=== PATIENT | female | born 1955 | race African-American/Black ===

== ENCOUNTER 2016-03-07 06:13 | Emergency (ER) | payer SELFPAY ==
[~2016-03-07] VITALS: Ht 175.3 cm; Wt 105.0 kg
[~2016-03-07 06:13] MED LIST: CIPR500T4 PO
[2016-03-07 06:16] VITALS: BP 172/84; PULSE 64; RESP 16; TEMP 98.4; O2SAT 97
[2016-03-07] MEDS ORDERED: CEPH-460 PO (07:33)
--- NOTE | 2016-03-07 07:34 | PD ---
HPI Chief Complaint: Complaint Time Seen by Provider: 07:06 Travel History International Travel<30 days: No Contact w/Intl Traveler<30days: No Traveled to known affect area: No History of Present Illness HPI 60-year-old female here with complaint of urinary symptoms. Patient has had 3 days of small volume frequent urination. Little dysuria at the end stream. No suprapubic pain, flank pain, hematuria. No fevers or chills documented. PFSH Past Medical History Hypertension: Yes Past Surgical History Surgical History: No Previous Surgery Social History Alcohol Use: No Tobacco Use: No Substance Use: No Allergies-Medications (Allergen,Severity, Reaction): Coded Allergies: No Known Allergies (Verified , 03/07/16) Reported Meds & Prescriptions Reported Meds & Active Scripts Active No Active Prescriptions or Reported Medications Review of Systems Except as stated in HPI: all other systems reviewed are Neg Physical Exam Narrative GENERAL: Well-appearing female in no acute distress SKIN: Warm and dry. HEAD: Normocephalic. EYES: No scleral icterus. No injection or drainage. ENT: Mucous membranes pink and moist. NECK: Supple CARDIOVASCULAR: Regular rate and rhythm. RESPIRATORY: No accessory muscle use. GASTROINTESTINAL: Abdomen soft, non-tender, nondistended. No CVA tenderness MUSCULOSKELETAL: Normal gait NEUROLOGICAL: Awake and alert. Normal speech. PSYCHIATRIC: Appropriate mood and affect; insight and judgment normal. Data Data Last Documented VS Vital Signs Date Time Temp Pulse Resp B/P Pulse Ox O2 Delivery O2 Flow Rate FiO2 03/07/16 06:36 64 16 03/07/16 06:16 98.4 172/84 97 Room Air Orders Urinalysis - C+S If Indicated (03/07/16 06:25) Urine Culture (03/07/16 07:32) [facility] Medical Decision Making Medical Screen Exam Complete: Yes Emergency Medical Condition: Yes Medical Record Reviewed: Yes Differential Diagnosis 60-year-old female with 3 days of small volume frequent urination and end stream dysuria. Symptoms are classic for cystitis. Patient will be discharged home with antibiotics empirically awaiting urine culture. Narrative Course Urine culture sent, discharged with Keflex. Diagnosis Primary Impression: Cystitis Referrals: Lisbet Huynh MD call for appointment [facility] call for appointment Primary Care Physician call for appointment Additional Instructions: Finish antibiotics as prescribed. Follow-up with primary care, or Nish, and patient assistance. Med/Other Pt SpecificInfo: Prescription(s) given Scripts Cephalexin (Keflex)500 Mg [id number] Mg PO Q6H 7 Days Ref 0 Prov:Lisa Morales MD 03/07/16 Disposition: 01 DISCHARGE HOME Condition: Stable Lisa Morales MD Mar 07, 2016 07:34
== END 2016-03-07 08:05 | disposition home or self-care (01) ==
LOC: NEPC 06:13
DX: N30.90 Cystitis, unspecified without hematuria (principal); I10 Essential (primary) hypertension; R82.99 Other abnormal findings in urine
CPT/HCPCS: 87086; 99283

== ENCOUNTER 2016-11-24 16:12 | Emergency (ER) | payer SELFPAY ==
[~2016-11-24] VITALS: Ht 165.1 cm; Wt 100.0 kg
[~2016-11-24 16:12] MED LIST changes: +CEPH-460 PO; -CIPR500T4 PO
[2016-11-24 16:14] VITALS: BP 177/95; PULSE 86; RESP 19; TEMP 99.4; O2SAT 96
--- NOTE | 2016-11-24 16:31 | PD ---
Physical Exam Time Seen by Provider: 16:30 Narrative 61 y/o female here with dental pain and increased urinary frequency intermittently for 2-3 weeks. No dental pain currently. She also wanted her blood pressure checked. Vital signs reviewed. Seen at triage desk. Awaiting bed placement. Data Data Last Documented VS Vital Signs Date Time Temp Pulse Resp B/P (MAP) Pulse Ox O2 Delivery O2 Flow Rate FiO2 11/24/16 16:14 99.4 86 19 177/95 (122) 96 MDM Medical Record Reviewed: Yes Supervised Visit with TRUNG: Tony Kumar Nov 24, 2016 16:31
--- NOTE | 2016-11-24 18:38 | PD ---
HPI Chief Complaint: Complaint Time Seen by Provider: 17:52 Travel History International Travel<30 days: No Contact w/Intl Traveler<30days: No Traveled to known affect area: No History of Present Illness HPI 61-year-old female here for evaluation of possible urinary infection, dental pain, and difficulty sleeping at night. Symptoms have been going on for the last few weeks. She denies fevers or chills. She is also concerned about possibly having elevated blood pressure. She denies headache. No chest pain or dyspnea. Currently she does not have any dental pain. No paresthesias or motor deficits. PFSH Past Medical History Medical History: Denies Significant Hx Diminished Hearing: No Hypertension: Yes Tetanus Vaccination: > 5 Years Influenza Vaccination: No : 3 Para: 3 Past Surgical History Surgical History: No Previous Surgery Social History Alcohol Use: No Tobacco Use: No Substance Use: No Allergies-Medications (Allergen,Severity, Reaction): Coded Allergies: No Known Allergies (Verified , 11/24/16) Reported Meds & Prescriptions Reported Meds & Active Scripts Active No Active Prescriptions or Reported Medications Review of Systems Except as stated in HPI: all other systems reviewed are Neg Physical Exam Narrative GENERAL: Well-developed, well-nourished, sitting comfortably on chair, no acute distress. SKIN: Focused skin assessment warm/dry. HEAD: Atraumatic. Normocephalic. EYES: Pupils equal and round. No scleral icterus. No injection or drainage. ENT: Mucous membranes pink and moist. Patient only has 2 teeth which are upper and left sided. No fluctuance. No drooling or stridor. No trismus. NECK: Trachea midline. No JVD. CARDIOVASCULAR: Regular rate and rhythm. RESPIRATORY: No accessory muscle use. Clear to auscultation. Breath sounds equal bilaterally. GASTROINTESTINAL: Abdomen soft, non-tender, nondistended. MUSCULOSKELETAL: No obvious deformities. No clubbing. No cyanosis. No edema. NEUROLOGICAL: Awake and alert. No obvious cranial nerve deficits. Motor grossly within normal limits. Normal speech. PSYCHIATRIC: Appropriate mood and affect; insight and judgment normal. Data Data Last Documented VS Vital Signs Date Time Temp Pulse Resp B/P (MAP) Pulse Ox O2 Delivery O2 Flow Rate FiO2 11/24/16 18:26 83 16 11/24/16 16:14 99.4 177/95 (122) 96 Orders Orders Urinalysis - C+S If Indicated (11/24/16 18:35) Urine Culture (11/24/16 18:40) Ciprofloxacin (Cipro) (11/24/16 19:15) Labs Laboratory Tests Test 11/24/16 18:40 Urine Color YELLOW Urine Turbidity HAZY Urine pH 5.5 Urine Specific [place] 1.022 Urine Protein TRACE mg/dL Urine Glucose (UA) NEG mg/dL Urine Ketones NEG mg/dL Urine Occult Blood MOD Urine Nitrite NEG Urine Bilirubin NEG Urine Urobilinogen LESS THAN 2.0 MG/DL Urine Leukocyte Esterase LARGE Urine RBC 27 /hpf Urine WBC 29 /hpf Urine Squamous Epithelial Cells 4 /hpf Urine Bacteria FEW /hpf Urine Hyaline Casts 4 /lpf Urine Mucus MANY /lpf Microscopic Urinalysis Comment CULTURE INDICATED MDM Medical Decision Making Medical Screen Exam Complete: Yes Emergency Medical Condition: Yes Differential Diagnosis UTI, cystitis, pyelonephritis, dental infection, dental cavity, hypertension, hypertensive crisis unlikely Narrative Course Initial vital signs show heart rate 86, blood pressure 177/95, pulse ox 96% on room air, oral temp of 99.4F. UA shows hazy urine, moderate occult blood, large the site esterase, 27 rbc's, 29 wbc's, few bacteria, many mucus. Patient made aware of all findings. She will be started on Cipro. She is not displaying any signs or symptoms of hypertensive crisis. Her abdominal exam is benign. She is stable for discharge home with outpatient follow-up. I will give her the information to the [facility] with whom to follow-up with this week. She was informed on when to return to the emergency department. She verbalizes understanding and agreement with plan. Diagnosis Primary Impression: UTI (urinary tract infection) Qualified Codes: N39.0 - Urinary tract infection, site not specified; R31.9 - Hematuria, unspecified Referrals: [facility] 3 days Additional Instructions: Follow-up with a primary care physician this week. Take antibiotic as prescribed. Return to the emergency department for worsening symptoms or any other concerns. Scripts Ciprofloxacin (Cipro) 500 Mg Tab 500 MG PO BID for Infection for 5 Days, #10 TAB 0 Refills Prov: Tee Valdez MD 11/24/16 Disposition: 01 DISCHARGE HOME Condition: Stable Tee Valdez MD Nov 24, 2016 18:38
[2016-11-24 19:09] LABS: BACTERIA, URINE FEW /hpf; BLOOD, URINE MOD (NEG); COMMENT (UR) CULTURE INDICATED; CULTURE IF INDICATED CULTURE INDICATED; GLUCOSE,URINE NEG (NEG); HYALINE CAST, URINE 4 /lpf (RARE); KETONE, URINE NEG (NEG); MUCUS URINE MANY /lpf (OCC); NITRITE,URINE NEG (NEG); PH, URINE 5.5 (5.0-8.5); SQUAMOUS EPITHELIAL CELL URINE 4 /hpf (0-5); URINE COLOR YELLOW (YELLW/STRAW)
[2016-11-24] MEDS ORDERED: CIPROFLOXACIN 500 MG TAB PO ONE (19:15)
[2016-11-24] MEDS ORDERED: CIPR-9 PO (19:16)
== END 2016-11-24 19:27 | disposition home or self-care (01) ==
LOC: NEPD 16:12
DX: N39.0 Urinary tract infection, site not specified (principal); K08.89 Other specified disorders of teeth and supporting structures; I10 Essential (primary) hypertension
CPT/HCPCS: 81001; 87086; 99283

== ENCOUNTER 2017-05-06 03:52 | Emergency (ER) | payer SELFPAY ==
[~2017-05-06] VITALS: Ht 175.3 cm; Wt 118.2 kg
[~2017-05-06 03:52] MED LIST changes: -CEPH-460 PO; +CIPR-9 PO
[2017-05-06 04:31] VITALS: BP 194/86; PULSE 72; RESP 16; TEMP 99.2; O2SAT 97
[2017-05-06 05:49] VITALS: BP 140/78; PULSE 63; RESP 16; TEMP 98.5; O2SAT 99
[2017-05-06] MEDS ORDERED: ACETAMINOPHEN 325 MG TAB PO ONE (06:30)
--- NOTE | 2017-05-06 06:45 | RADRPT ---
EXAM DATE/TIME: 05/06/2017 06:29 [place] COMPARISON: No previous studies available for comparison. INDICATIONS : Fever. MEDICAL HISTORY : None. SURGICAL HISTORY : None. ENCOUNTER: Initial ACUITY: 1 day PAIN SCORE: 0/10 LOCATION: Bilateral chest FINDINGS: A single view of the chest demonstrates the lungs to be symmetrically aerated without evidence of mas s, infiltrate or effusion. The cardiomediastinal contours are unremarkable. Osseous structures are intact. CONCLUSION: No evidence of acute cardiopulmonary disease. Zion Quevedo MD on May 06, 2017 at 6:44 Board Certified Radiologist. This report was verified electronically.
--- NOTE | 2017-05-06 06:45 | PD ---
HPI Chief Complaint: General Weakness Time Seen by Provider: 06:15 Travel History International Travel<30 days: No Contact w/Intl Traveler<30days: No Traveled to known affect area: No History of Present Illness HPI Patient is a 62-year-old female with no specific past medical history denies surgeries denies medical she has poor dentition she has no teeth on her lower gums one tooth on her upper. Her complaint is vague aches pains weakness for 2 weeks decreased appetite fever and episodes of hypertension triage she is hypertensive and she is febrile. She has had increased frequency and in the past she was here about a month ago with UTI diagnosed and treated with antibiotics. Now that there feeling that maybe her dentition or her urine or her hypertension is adding to her feelings of weakness she has no cardiac history she denies diabetes denies hypertension denies surgeries her complaints are vague and patient is nontoxic-appearing awake alert [facility] Past Medical History Diminished Hearing: No Hypertension: Yes Influenza Vaccination: No : 3 Para: 3 Past Surgical History Surgical History: No Previous Surgery Social History Alcohol Use: No Tobacco Use: No Substance Use: No Allergies-Medications (Allergen,Severity, Reaction): Coded Allergies: No Known Allergies (Verified Adverse Reaction, Unknown, 05/06/17) Reported Meds & Prescriptions Reported Meds & Active Scripts Active Macrobid (Nitrofurantoin Monohydrate Macrocrystals) 100 Mg Capsule 100 Mg PO BID Review of Systems Except as stated in HPI: all other systems reviewed are Neg Genitourinary: Positive: Frequency Musculoskeletal: Positive: Weakness Physical Exam Narrative GENERAL: Nontoxic-appearing awake alert obvious poor dentition SKIN: Warm and dry. HEAD: Atraumatic. Normocephalic. EYES: Pupils equal and round. No scleral icterus. No injection or drainage. ENT: No nasal bleeding or discharge. Mucous membranes pink and moist. Patient has only one tooth on her upper gum line and a few roots that are exposed to her lower jaw has no teeth all teeth extracted from the lower jaw NECK: Trachea midline. No JVD. CARDIOVASCULAR: Regular rate and rhythm. RESPIRATORY: No accessory muscle use. Clear to auscultation. Breath sounds equal bilaterally. GASTROINTESTINAL: Abdomen soft, non-tender, nondistended. Hepatic and splenic margins not palpable. No tenderness palpated in all quadrants there is no tenderness MUSCULOSKELETAL: Extremities without clubbing, cyanosis, or edema. No obvious deformities. NEUROLOGICAL: Awake and alert. No obvious cranial nerve deficits. Motor grossly within normal limits. Five out of 5 muscle strength in the arms and legs. Normal speech. PSYCHIATRIC: Appropriate mood and affect; insight and judgment normal. Data Data Last Documented VS Vital Signs Date Time Temp Pulse Resp B/P (MAP) Pulse Ox O2 Delivery O2 Flow Rate FiO2 05/06/17 09:06 (107) 05/06/17 07:26 77 18 98 Orders Orders Complete Blood Count With Diff (05/06/17 06:24) Comprehensive Metabolic Panel (05/06/17 06:24) Troponin I (05/06/17 06:24) Lipase (05/06/17 06:24) Urinalysis - C+S If Indicated (05/06/17 06:24) Chest, Single Ap (05/06/17 06:24) Acetaminophen (Tylenol) (05/06/17 06:30) Urine Culture (05/06/17 07:25) Ed Discharge Order (05/06/17 08:57) Labs Laboratory Tests Test 05/06/17 06:40 05/06/17 07:25 White Blood Count 7.4 TH/MM3 Red Blood Count 4.82 MIL/MM3 Hemoglobin 14.3 GM/DL Hematocrit 41.5 % Mean Corpuscular Volume 86.1 FL Mean Corpuscular Hemoglobin 29.6 PG Mean Corpuscular Hemoglobin Concent 34.4 % Red Cell Distribution Width 15.2 % Platelet Count 266 TH/MM3 Mean Platelet Volume 7.4 FL Neutrophils (%) (Auto) 59.0 % Lymphocytes (%) (Auto) 31.9 % Monocytes (%) (Auto) 7.5 % Eosinophils (%) (Auto) 1.1 % Basophils (%) (Auto) 0.5 % Neutrophils # (Auto) 4.4 TH/MM3 Lymphocytes # (Auto) 2.4 TH/MM3 Monocytes # (Auto) 0.6 TH/MM3 Eosinophils # (Auto) 0.1 TH/MM3 Basophils # (Auto) 0.0 TH/MM3 CBC Comment DIFF FINAL Differential Comment Blood Urea Nitrogen 11 MG/DL Creatinine 0.86 MG/DL Random Glucose 100 MG/DL Total Protein 8.0 GM/DL Albumin 3.8 GM/DL Calcium Level 8.8 MG/DL Alkaline Phosphatase 67 U/L Aspartate Amino Transf (AST/SGOT) 17 U/L Alanine Aminotransferase (ALT/SGPT) 21 U/L Total Bilirubin 0.3 MG/DL Sodium Level 141 MEQ/L Potassium Level 3.9 MEQ/L Chloride Level 106 MEQ/L Carbon Dioxide Level 26.6 MEQ/L Anion Gap 8 MEQ/L Estimat Glomerular Filtration Rate 81 ML/MIN Troponin I LESS THAN 0.02 NG/ML Lipase 168 U/L Urine Color YELLOW Urine Turbidity HAZY Urine pH 5.5 Urine Specific [place] 1.030 Urine Protein 30 mg/dL Urine Glucose (UA) NEG mg/dL Urine Ketones TRACE mg/dL Urine Occult Blood SMALL Urine Nitrite NEG Urine Bilirubin NEG Urine Urobilinogen LESS THAN 2.0 MG/DL Urine Leukocyte Esterase LARGE Urine RBC 8 /hpf Urine WBC 61 /hpf Urine Squamous Epithelial Cells 7 /hpf Urine Bacteria OCC /hpf Urine Mucus MANY /lpf Microscopic Urinalysis Comment CULTURE INDICATED MDM Medical Decision Making Medical Screen Exam Complete: Yes Emergency Medical Condition: Yes Differential Diagnosis Viral syndrome versus upper rest for infection versus UTI versus generalized malaise Narrative Course UTI macrobid d.c Diagnosis Primary Impression: Weakness Scripts Nitrofurantoin Monohydrate Macrocrystals (Macrobid) 100 Mg Capsule 100 MG PO BID for Infection, #10 CAP 0 Refills Prov: Micah Maria MD 05/06/17 Chong Blackburn MD May 06, 2017 06:45
[2017-05-06 06:53] LABS: AUTOMATED NEUTROPHIL # 4.4 TH/MM3 (1.8-7.7); BASOPHIL % 0.5 % (0.0-2.0); EOSINOPHIL # 0.1 TH/MM3 (0-0.4); EOSINOPHIL % 1.1 % (0.0-4.0); HEMATOCRIT 41.5 % (35.0-46.0); HEMOGLOBIN 14.3 GM/DL (11.6-15.3); LYMPH % 31.9 % (9.0-44.0); LYMPHOCYTE # 2.4 TH/MM3 (1.0-4.8); MEAN CELL VOLUME 86.1 FL (80.0-100.0); MEAN CORPUSCULAR HEMOGLOBIN 29.6 PG (27.0-34.0); MEAN CORPUSCULAR HGB CONC 34.4 % (32.0-36.0); MEAN PLATELET VOLUME 7.4 FL (7.0-11.0); MONO % 7.5 % (0.0-8.0); MONOCYTE # 0.6 TH/MM3 (0-0.9); PLATELET COUNT 266 TH/MM3 (150-450); RED BLOOD COUNT 4.82 MIL/MM3 (4.00-5.30); RED CELL DISTRIBUTION WIDTH 15.2 % (11.6-17.2); WHITE BLOOD COUNT 7.4 TH/MM3 (4.0-11.0)
[2017-05-06 07:13] LABS: ALBUMIN 3.8 GM/DL (3.4-5.0); AST (GOT) 17 U/L (15-37); BICARBONATE 26.6 MEQ/L (21.0-32.0); BLOOD UREA NITROGEN 11 MG/DL (7-18); CALCIUM 8.8 MG/DL (8.5-10.1); CHLORIDE 106 MEQ/L (98-107); CREATININE 0.86 MG/DL (0.50-1.00); GLOMERULAR FILTRATION RATE 81 ML/MIN (>89); GLUCOSE,RANDOM 100 MG/DL (74-106); SODIUM (NA) 141 MEQ/L (136-145)
[2017-05-06 07:14] LABS: ALT (GPT) 21 U/L (10-53)
[2017-05-06 07:18] LABS: ALKALINE PHOSPHATASE 67 U/L (45-117); TOTAL BILIRUBIN ADULT 0.3 MG/DL (0.2-1.0); TROPONIN I LESS THAN 0.02 NG/ML (0.02-0.05)
[2017-05-06 07:26] VITALS: BP 145/89; PULSE 77; RESP 18; O2SAT 98
[2017-05-06 08:31] LABS: BACTERIA, URINE OCC /hpf; BILIRUBIN, URINE NEG (NEG); BLOOD, URINE SMALL (NEG); GLUCOSE,URINE NEG (NEG); KETONE, URINE TRACE mg/dL (NEG); MUCUS URINE MANY /lpf (OCC); NITRITE,URINE NEG (NEG); PH, URINE 5.5 (5.0-8.5); SQUAMOUS EPITHELIAL CELL URINE 7 /hpf (0-5); URINE COLOR YELLOW (YELLW/STRAW); URINE LEUKOCYTE ESTERASE LARGE (NEG)
[2017-05-06] MEDS ORDERED: MACR100C2 PO (08:55)
--- NOTE | 2017-05-06 08:57 | PD ---
Data Data Last Documented VS Vital Signs Date Time Temp Pulse Resp B/P (MAP) Pulse Ox O2 Delivery O2 Flow Rate FiO2 05/06/17 07:26 77 18 145/89 (107) 98 05/06/17 05:49 98.5 Room Air Orders Orders Complete Blood Count With Diff (05/06/17 06:24) Comprehensive Metabolic Panel (05/06/17 06:24) Troponin I (05/06/17 06:24) Lipase (05/06/17 06:24) Urinalysis - C+S If Indicated (05/06/17 06:24) Chest, Single Ap (05/06/17 06:24) Acetaminophen (Tylenol) (05/06/17 06:30) Urine Culture (05/06/17 07:25) Labs Laboratory Tests Test 05/06/17 06:40 05/06/17 07:25 White Blood Count 7.4 TH/MM3 Red Blood Count 4.82 MIL/MM3 Hemoglobin 14.3 GM/DL Hematocrit 41.5 % Mean Corpuscular Volume 86.1 FL Mean Corpuscular Hemoglobin 29.6 PG Mean Corpuscular Hemoglobin Concent 34.4 % Red Cell Distribution Width 15.2 % Platelet Count 266 TH/MM3 Mean Platelet Volume 7.4 FL Neutrophils (%) (Auto) 59.0 % Lymphocytes (%) (Auto) 31.9 % Monocytes (%) (Auto) 7.5 % Eosinophils (%) (Auto) 1.1 % Basophils (%) (Auto) 0.5 % Neutrophils # (Auto) 4.4 TH/MM3 Lymphocytes # (Auto) 2.4 TH/MM3 Monocytes # (Auto) 0.6 TH/MM3 Eosinophils # (Auto) 0.1 TH/MM3 Basophils # (Auto) 0.0 TH/MM3 CBC Comment DIFF FINAL Differential Comment Blood Urea Nitrogen 11 MG/DL Creatinine 0.86 MG/DL Random Glucose 100 MG/DL Total Protein 8.0 GM/DL Albumin 3.8 GM/DL Calcium Level 8.8 MG/DL Alkaline Phosphatase 67 U/L Aspartate Amino Transf (AST/SGOT) 17 U/L Alanine Aminotransferase (ALT/SGPT) 21 U/L Total Bilirubin 0.3 MG/DL Sodium Level 141 MEQ/L Potassium Level 3.9 MEQ/L Chloride Level 106 MEQ/L Carbon Dioxide Level 26.6 MEQ/L Anion Gap 8 MEQ/L Estimat Glomerular Filtration Rate 81 ML/MIN Troponin I LESS THAN 0.02 NG/ML Lipase 168 U/L Urine Color YELLOW Urine Turbidity HAZY Urine pH 5.5 Urine Specific [place] 1.030 Urine Protein 30 mg/dL Urine Glucose (UA) NEG mg/dL Urine Ketones TRACE mg/dL Urine Occult Blood SMALL Urine Nitrite NEG Urine Bilirubin NEG Urine Urobilinogen LESS THAN 2.0 MG/DL Urine Leukocyte Esterase LARGE Urine RBC 8 /hpf Urine WBC 61 /hpf Urine Squamous Epithelial Cells 7 /hpf Urine Bacteria OCC /hpf Urine Mucus MANY /lpf Microscopic Urinalysis Comment CULTURE INDICATED MDM Supervised Visit with TRUNG: No Narrative Course This case is checked out to me by Dr. Blackburn at 7 AM. At 8:50 AM I rechecked the patient. I reviewed the results of the workup with her. She has some vague generalized weakness and malaise but looks clinically well. She is ambulatory and does not look septic or toxic. She's had no fever. She does have urinary frequency and her urinalysis shows 61 white cells but there is also 7 epithelial cells It will be cultured but I'm going to give her 5 days of Macrobid CBC and metabolic profiles are normal Her chest x-ray is normal Clinically stable for outpatient follow-up Diagnosis Primary Impression: Generalized weakness Additional Impression: Urinary frequency Additional Instruction: The patient was advised to follow up with their physician and return if they worsen. Med/Other Pt SpecificInfo: Prescription(s) given Scripts Nitrofurantoin Monohydrate Macrocrystals (Macrobid) 100 Mg Capsule 100 MG PO BID for Infection, #10 CAP 0 Refills Prov: Micah Maria MD 05/06/17 Disposition: DISCHARGE HOME Condition: Stable Micah Maira MD May 06, 2017 08:57
== END 2017-05-06 09:10 | disposition home or self-care (01) ==
LOC: NEPE 03:52
DX: R53.1 Weakness (principal); N39.0 Urinary tract infection, site not specified
CPT/HCPCS: 71045; 80053; 81001; 83690; 84484; 85025; 87086; 99284